=== PATIENT | female | born 1990 | race American Indian/Alaskan Native ===

== ENCOUNTER 2020-07-02 02:00 | Emergency (ER) | payer BC, OTHER ==
--- NOTE | 2020-07-02 02:30 | Emergency Department Report ---
<NICOL MERRITT - Last Filed: 07/02/20 02:25> ED Chest Pain HPI - General Chief Complaint: Chest Pain Stated Complaint: CHEST PAIN,TROUBLE BREATHING, COVID + Source: patient Mode of arrival: Ambulatory Limitations: No Limitations - History of Present Illness Initial Comments: Patient is a 30-year-old -Luxembourger female with a history of morbid obesit y and asthma who presents to the ED with complaint of acute onset persistent dry cough, pleuritic chest wall pain, diffuse body aches and pains for the last 2 weeks. 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 Patient states that 2 days ago she developed acute onset persistent shortness of breath with worsening dry cough and right-sided chest pain. Patient denies fever, chills, nausea, vomiting, diaphoresis, diarrhea, dizziness, syncope, headache, palpitations, fever, chills, sore throat, back pain, neck pain, numbness and tingling or weakness of upper and lower extremities bilaterally. MD Complaint: chest pain, other (dyspnea; persistent dry cough) -: Sudden, week(s) (2) Onset: awoke with symptoms Pain Location: right chest Pain Radiation: none Severity: moderate Severity scale (0 -10): 5 Quality: aching, sharp Consistency: constant Improves With: nothing Worsens With: inspiration (Covid-19 +ve 2 weeks ago), movement, other (cough) Context: recent illness re: dyspnea. denies: nausea, vomting, diaphoresis, sense of impending doom Other Symptoms: cough. denies: fever, syncope, rash, acid taste in mouth, leg swelling, palpitations, burping Treatments Prior to Arrival: none Aspirin use within the Past 7 Days: (0) No - Related Data On Oral Contraceptives: No Previous Rx's Medication Instructions Recorded Last Taken Type Acetaminophen [Non-Aspirin Extra 500 mg PO Q6HR PRN #30 tablet 07/02/20 Unknown Rx Strength] Ibuprofen [Motrin 800 MG tab] 800 mg PO Q8HR PRN #20 tablet 07/02/20 Unknown Rx Allergies Allergy/AdvReac Type Severity Reaction Status Date / Time No Known Allergies Allergy Unverified 05/15/16 18:30 Heart Score - HEART Score History: Slightly suspicious EKG: Normal Age: < 45 Risk factors: No known risk factors Troponin: < normal limit HEART Score: 0 - Critical Actions Critical Actions: 0-3 pts:0.9-1.7%risk of adverse cardiac event.Candidate for discharge ED Review of Systems Constitutional: denies: chills, fever Eyes: denies: eye pain, eye discharge, vision change ENT: denies: ear pain, throat pain Respiratory: denies: cough, shortness of breath, wheezing Cardiovascular: chest pain (right sided chest wall pain). denies: palpitations, dyspnea on exertion, orthopnea, edema, syncope, paroxysmal nocturnal dyspnea, other Endocrine: no symptoms reported Gastrointestinal: denies: abdominal pain, nausea, vomiting, diarrhea Genitourinary: denies: urgency, dysuria, discharge Musculoskeletal: denies: back pain, joint swelling, arthralgia Skin: denies: rash, lesions Neurological: denies: headache, weakness, paresthesias Psychiatric: denies: anxiety, depression Hematological/Lymphatic: denies: easy bleeding, easy bruising ED Past Medical Hx - Past Medical History Previous Medical History?: Yes Hx Asthma: Yes Additional medical history: Morbid Obesity - Surgical History Past Surgical History?: No - Social History Smoking Status: Current Every Day Smoker Substance Use Type: Marijuana - Medications Home Medications: Home Medications Medication Instructions Recorded Confirmed Last Taken Type Acetaminophen [Non-Aspirin Extra 500 mg PO Q6HR PRN #30 tablet 07/02/20 Unknown Rx Strength] Ibuprofen [Motrin 800 MG tab] 800 mg PO Q8HR PRN #20 tablet 07/02/20 Unknown Rx ED Physical Exam - General Limitations: No Limitations General appearance: alert, in no apparent distress - Head Head exam: Present: atraumatic, normocephalic, normal inspection - Eye Eye exam: Present: normal appearance, PERRL, EOMI Pupils: Present: normal accommodation - ENT ENT exam: Present: normal exam, normal orophraynx, mucous membranes moist, TM's normal bilaterally, normal external ear exam - Neck Neck exam: Present: normal inspection, full ROM - Respiratory Respiratory exam: Present: normal lung sounds bilaterally. Absent: respiratory distress, wheezes, rales, rhonchi, chest wall tenderness, accessory muscle use, decreased breath sounds, prolonged expiratory - Cardiovascular Cardiovascular Exam: Present: regular rate, normal rhythm, normal heart sounds. Absent: systolic murmur, diastolic murmur, rubs, gallop - GI/Abdominal GI/Abdominal exam: Present: soft, normal bowel sounds. Absent: tenderness, guarding, rebound, hyperactive bowel sounds, hypoactive bowel sounds, organomegaly - Extremities Exam Extremities exam: Present: normal inspection, full ROM, normal capillary refill - Back Exam Back exam: Present: normal inspection, full ROM. Absent: tenderness, CVA tenderness (R), CVA tenderness (L), muscle spasm, paraspinal tenderness, vertebral tenderness - Neurological Exam Neurological exam: Present: alert, oriented X3, CN II-XII intact, normal gait, reflexes normal - Psychiatric Psychiatric exam: Present: normal affect, normal mood, anxious - Skin Skin exam: Present: warm, dry, intact, normal color. Absent: rash AYAN score - Ayan Score Age > 65: (0) No Aspirin use within the Past 7 Days: (0) No 3 or more CAD Risk Factors: (0) No 2 or more Angina events in past 24 hrs: (0) No Known CAD with more than 50% Stenosis: (0) No Elevated Cardiac Markers: (0) No ST Deviation Greater than 0.5mm: (0) No AYAN Score: 0 ED Medical Decision Making - Radiology Data Radiology results: report reviewed, image reviewed - Medical Decision Making This is a 30-year-old -Luxembourger female with a history of morbid obesity and asthma who presents to the ED with complaint of acute onset persistent dry cough, pleuritic chest wall pain, diffuse body aches and pains for the last 2 weeks. 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 Patient states that 2 days ago she developed acute onset persistent shortness of breath with worsening dry cough and right-sided chest pain. In the ED, patient is alert and oriented x3 and is not in distress with normal vital signs. EKG shows - Differential Diagnosis Pneumonia; Bronchitis; ACS; PE; Muscle strain; Costochondritis ED Disposition Clinical Impression: Pleuritic chest pain, Chest wall pain Disposition: TO HOME OR SELFCARE Is pt being admited?: No Does the pt Need Aspirin: No Condition: Good Instructions: Chest Pain (ED), Acute Bronchitis (ED), Chest Wall Pain Additional Instructions: Rest, avoid heavy lifting and strenuous physical activities. Take the prescribed medications as needed and directed. Patient may alternate ice packs and heat packs as needed for chest wall pain. Please follow-up with an [facility]/certified energy manager or primary care doctor for chest wall pain/breast pain within the next 2 weeks. Please return to the emergency room right away with new pain, worsened pain, migration of pain, projectile vomiting, change in mental status, confusion, inability to tolerate liquid feeds, new, worsened or different symptoms not present on the initial emergency room evaluation. Referrals: [facility] [Provider Group] - 3-5 Days [facility] [Provider Group] - 3-5 Days [facility] [Provider Group] - 3-5 Days SANGITA RIBERA - Last Filed: 07/02/20 04:01> Heart Score - HEART Score History: Slightly suspicious EKG: Normal Age: < 45 Risk factors: No known risk factors Troponin: < normal limit HEART Score: 0 - Critical Actions Critical Actions: 0-3 pts:0.9-1.7%risk of adverse cardiac event.Candidate for discharge ED Review of Systems ROS: Stated complaint: CHEST PAIN,TROUBLE BREATHING, COVID + Other details as noted in HPI ED Course Vital Signs 07/02/20 07/02/20 02:04 03:23 Temperature 98.7 F Pulse Rate 98 H 84 Respiratory 18 18 Rate Blood Pressure 152/87 Blood Pressure 132/66 [Left] O2 Sat by Pulse 100 100 Oximetry - Reevaluation(s) Reevaluation #1: 07/02/20 03:57 Patient is a 30-year-old female, recently diagnosed with a symptomatic Covid, approximately 3 weeks ago, however, subsequently had negative test, presenting to the ER today with a complaint of 1 month reproducible right-sided chest wall and breast pain. She is not currently tachycardic, tachypneic or hypoxic. She denies travel, surgery, oral contraceptive use. She has exquisitely reproducible chest wall pain. Troponin negative x1. D-dimer negative. Not currently tachycardic, tachypneic or hypoxic, low pre-/post test probability for pulmonary embolism at this time. Patient at low risk for major adverse cardiac event. Chest wall pain present for weeks. Acute myocardial infarction excluded/ruled out. Patient counseled appropriately. She endorsed understanding. She can follow-up with an outpatient certified energy manager or primary care doctor for her breast pain. Her breast examination itself is not consistent with redness, pus or streaking, there is no obvious fluctuance noted. Chaperoned by nurse Carolyn Schwartz Patient has equal pulses in the upper and lower extremities, no pulsatile abdominal mass, and an unremarkable x-ray of the chest, therefore, aortic disease is very unlikely. Patient at low risk for major adverse cardiac event as per heart score. Given reproducibility, history and physical, do not have a high suspicion for GERD, gastritis, hiatal hernia at this time. Pneumonia is unlikely given history, physical, and x-ray findings. I find coronary artery disease of significance to be unlikely. ED Medical Decision Making - Lab Data Result diagrams: 07/02/20 02:34 07/02/20 02:34 Vital Signs 07/02/20 02:04 Temperature 98.7 F Pulse Rate 98 H Respiratory 18 Rate Blood Pressure 152/87 O2 Sat by Pulse 100 Oximetry Lab Results 07/02/20 07/02/20 07/02/20 Range/Units 02:34 02:34 02:34 WBC 7.2 (4.5-11.0) K/mm3 RBC 4.25 (3.65-5.03) M/mm3 Hgb 11.8 (10.1-14.3) gm/dl Hct 35.9 (30.3-42.9) % MCV 84 (79-97) fl MCH 28 (28-32) pg MCHC 33 (30-34) % RDW 14.4 (13.2-15.2) % Plt Count 224 (140-440) K/mm3 Lymph % (Auto) 36.9 H (13.4-35.0) % [place] % (Auto) 6.8 (0.0-7.3) % Eos % (Auto) 1.9 (0.0-4.3) % Baso % (Auto) 0.4 (0.0-1.8) % Lymph # (Auto) 2.7 (1.2-5.4) K/mm3 [place] # (Auto) 0.5 (0.0-0.8) K/mm3 Eos # (Auto) 0.1 (0.0-0.4) K/mm3 Baso # (Auto) 0.0 (0.0-0.1) K/mm3 Seg Neutrophils % 54.0 (40.0-70.0) % Seg Neutrophils # 3.9 (1.8-7.7) K/mm3 PT (12.2-14.9) Sec. INR (0.87-1.13) D-Dimer (0-234) ng/mlDDU Total Creatine Kinase (30-135) units/L Troponin T < 0.010 (0.00-0.029) ng/mL Albumin/Globulin Ratio % HCG, Qual Negative (Negative) 07/02/20 07/02/20 07/02/20 Range/Units 02:34 02:37 02:37 WBC (4.5-11.0) K/mm3 RBC (3.65-5.03) M/mm3 Hgb (10.1-14.3) gm/dl Hct (30.3-42.9) % MCV (79-97) fl MCH (28-32) pg MCHC (30-34) % RDW (13.2-15.2) % Plt Count (140-440) K/mm3 Lymph % (Auto) (13.4-35.0) % [place] % (Auto) (0.0-7.3) % Eos % (Auto) (0.0-4.3) % Baso % (Auto) (0.0-1.8) % Lymph # (Auto) (1.2-5.4) K/mm3 [place] # (Auto) (0.0-0.8) K/mm3 Eos # (Auto) (0.0-0.4) K/mm3 Baso # (Auto) (0.0-0.1) K/mm3 Seg Neutrophils % (40.0-70.0) % Seg Neutrophils # (1.8-7.7) K/mm3 PT 12.5 (12.2-14.9) Sec. INR 0.95 (0.87-1.13) D-Dimer 152.26 (0-234) ng/mlDDU Total Creatine Kinase 177 H (30-135) units/L Troponin T (0.00-0.029) ng/mL Albumin/Globulin Ratio 1.3 % HCG, Qual (Negative) - EKG Data -: EKG Interpreted by Me EKG shows normal: sinus rhythm Rate: normal - EKG Data 07/02/20 03:23 Sinus rhythm, 31 bpm, normal axis, QTC 480 ms, and motion artifact. The EKG is not a STEMI. - Radiology Data Radiology results: pending, report reviewed, image reviewed - Medical Decision Making X-ray of the chest is negative for acute disease Critical care attestation.: If time is entered above; I have spent that time in minutes in the direct care of this critically ill patient, excluding procedure time. ED Disposition Is pt being admited?: No Does the pt Need Aspirin: No
[2020-07-02] MEDS ORDERED: ACETAMINOPHEN 500 MG TAB PO ONE (02:39)
[2020-07-02 02:58] LABS: Basophils % (Auto) 0.4 % (0.0-1.8); Eosinophils # (Auto) 0.1 K/mm3 (0.0-0.4); Eosinophils % (Auto) 1.9 % (0.0-4.3); Hematocrit 35.9 % (30.3-42.9); Hemoglobin 11.8 gm/dl (10.1-14.3); Lymphocytes # (Auto) 2.7 K/mm3 (1.2-5.4); Lymphocytes % (Auto) 36.9 % (13.4-35.0); Mean Corpuscular HGB Conc 33 % (30-34); Mean Corpuscular Volume 84 fl (79-97); Monocytes # (Auto) 0.5 K/mm3 (0.0-0.8); Monocytes % (Auto) 6.8 % (0.0-7.3); Platelet Count 224 K/mm3 (140-440); Red Blood Count 4.25 M/mm3 (3.65-5.03); Red Cell Distribution Width 14.4 % (13.2-15.2)
[2020-07-02 03:08] LABS: INR 0.95 (0.87-1.13)
[2020-07-02 03:16] LABS: Alanine Aminotransferase 10 units/L (7-56); Albumin 3.7 g/dL (3.9-5)
[2020-07-02 03:20] LABS: Blood Urea Nitrogen 12 mg/dL (7-17); Calcium 8.7 mg/dL (8.4-10.2); Hemolysis Index 2
[2020-07-02 03:23] LABS: BUN/Creatinine Ratio 20; Bilirubin,Direct < 0.2 mg/dL (0-0.2)
[2020-07-02 03:25] VITALS: BP 132/66
--- NOTE | 2020-07-02 03:40 | XRay Report ---
CHEST 1 VIEW 3:27 AM INDICATION / CLINICAL INFORMATION: Chest pain. COMPARISON: None available. FINDINGS: SUPPORT DEVICES: None. HEART / MEDIASTINUM: The heart size and pulmonary vasculature are normal. The aorta is normal in [place]. LUNGS / PLEURA: No significant pulmonary or pleural abnormality. No pneumothorax. ADDITIONAL FINDINGS: No significant additional findings. IMPRESSION: No acute findings. Signer Name: Ruddy Willoughby MD Signed: 07/02/2020 3:36 AM Workstation Name: [id number]
[2020-07-02] MEDS ORDERED: IBUPROFEN 600 MG TAB PO ONE (04:04)
== END 2020-07-02 04:05 | disposition home or self-care (01) ==
LOC: ED 02:00
DX: R07.89 Other chest pain (principal); J45.909 Unspecified asthma, uncomplicated; F17.200 Nicotine dependence, unspecified, uncomplicated; F12.10 Cannabis abuse, uncomplicated; Z79.899 Other long term (current) drug therapy
CPT/HCPCS: 36415; 71045; 80048; 80076; 82550; 84484; 84703; 85025; 85379; 85610; 93005